=== PATIENT | female | born 1970 | race Caucasian/White ===

== ENCOUNTER 2017-01-01 04:33 | Observation (INO) | payer BC ==
[~2017-01-01] VITALS: Ht 160 cm; Wt 100.2 kg
[~2017-01-01 04:33] MED LIST: AMOX/K CLAV875 M1 PO; CIPRO500 MG OR; FLAGYL500 MG OR; NO; NO HOME MEDS; PERCOCET 5/325M1 TAB PO; SENNA S1 TAB OR; ZOFRAN ODT4 MG PO; ZPAK PO
--- NOTE | 2017-01-01 04:35 | NUR ---
PATIENT BROUGHT IMMEDIATELY BACK TO TREATMENT AREA. UNDRESSED INTO A GOWN. TRIAGE COMPLETED AT BEDSIDE.AWAITING MD POSEY.
[2017-01-01 05:24] LABS: ALBUMIN 5.1 g/dL (3.2-5.0); ALKALINE PHOSPHATASE 88 u/l (38-126); AMYLASE 68 u/l (30-110); ANION GAP 18 (6-22 (CALC)); BILIRUBIN, TOTAL 0.6 mg/dL (0.0-1.4); BUN 18 mg/dL (7-17); BUN/CREATININE RATIO 25 (12-20 (CALC)); CALCIUM 10.2 mg/dL (8.4-10.2); CARBON DIOXIDE 27 mmol/l (22-30); CHLORIDE 103 mmol/l (95-108); CREATININE 0.7 mg/dL (0.5-1.0); GFR > 60 ML/MIN (>=60 (CALC)); GFR FOR AFR.AMER. > 60 ML/MIN (>=60 (CALC)); GLUCOSE 137 mg/dL (65-105); LIPASE 111 u/l (23-300); POTASSIUM 4.2 mmol/l (3.5-5.1); SGOT/AST 33 u/l (14-36); SGPT/ALT 38 u/l (9-52); SODIUM 144 mmol/l (137-146); TOTAL PROTEIN 8.7 g/dL (6.3-8.2)
[2017-01-01 05:31] LABS: HEMATOCRIT 47.3 % (37.0-47.0); HEMOGLOBIN 16.1 g/dl (12.0-16.0); IMMATURE GRANULOCYTES 1.2 % (0.0-1.0); MEAN CELL VOLUME 85.2 fL CALC (80.0-100.0); NEUT# 12.09 thou/uL (2.00-7.15); RED BLOOD COUNT 5.55 mill/uL (4.20-5.60); RED CELL DISTRI WIDTH 12.5 % (11.5-15.5)
--- NOTE | 2017-01-01 05:35 | NUR ---
BUN AND CREAT ON CHART, WAITING ON CT.
--- NOTE | 2017-01-01 06:15 | NUR ---
POSITIVE FOR H.PYLORI WAITING ON CT RESULTS.
--- NOTE | 2017-01-01 06:48 | NUR ---
REPORT GIVEN TO ANASTACIO BRUNO.
--- NOTE | 2017-01-01 06:53 | NUR ---
PT RESTING ON STRETCHER. RESP EVEN AND UNLABORED. SKIN WARM AND DRY. PT STATES "I FEEL TERRIBLE". PT STATES NAUSEA IS GONE. PT STATES DOES NOT WANT ANYTHING FOR PAIN. VSS. CALL LIGHT WITHIN REACH. NS INFUSING. IV SITE HEALTHY. PT AWAITING CT RESULTS. PT STATES UNABLE TO PROVIDE URINE SPECIMEN.
--- NOTE | 2017-01-01 07:39 | NUR ---
PT RESTING ON STRETCHER. RESP EVEN AND UNLABORED. SKIN WARM AND DRY. PT A&O X3. VSS. PT STATES HAD "LARGE BOWEL MOVEMENT", SOFT, BROWN. NOTIFIED. PT UNABLE TO PROVIDE U/A. CALL LIGHT WITHIN REACH. PT STATES DISCOMFORT OF 5 ON 1/10 SCALE. PT STATES DOES NOT WANT ANY PAIN MEDICATION. PT C/O "SLIGHT NAUSEA, NOT BAD". PT STATES NO NEEDS AT THIS TIME. PT AWAITING ADMISSION.
--- NOTE | 2017-01-01 08:27 | NUR ---
PT RESTING ON STRETCHER. PT STATES "I'M IN A COMFORTABLE POSITION". FAMILY AT BEDSIDE. PT IN STABLE CONDITION. PT STATES NO NEEDS AT THIS TIME. CALL LIGHT WITHIN REACH. PT AWAITING ADMISSION.
--- NOTE | 2017-01-01 09:07 | NUR ---
PT RESTING COMFORTABLY ON STRETCHER. FAMILY AT BEDSIDE. PT AWAITING ADMISSION. CALL LIGHT WITHIN REACH.
--- NOTE | 2017-01-01 09:39 | NUR ---
PT RESTING COMFORTABLY ON STRETCHER. FAMILY AT BEDSIDE. PT STATES NO NEEDS AT THIS TIME. CALL LIGHT WITHIN REACH. PT AWAITING MS NURSE FOR ADMISSION.
--- NOTE | 2017-01-01 10:40 | NUR ---
REPORT GIVEN TO AVA CHAVES
--- NOTE | 2017-01-01 10:45 | NUR ---
MD AT BEDSIDE SPEAKING WITH PT
--- NOTE | 2017-01-01 10:48 | NUR ---
Admission Note Report Given to: AVA CHAVES Transported by: Wheelchair Stretcher Transported with: Nurse X Transporter X Patent IV O2 Film Reproducer PT IN STABLE CONDITION. PT DENIES PAIN AND NAUSEA. ALL BELONGINGS WITH PT.
--- NOTE | 2017-01-01 10:50 | NUR ---
REPORT RECIEVED FROM JOÃO RN; PT ARRIVED TO FLOOR AT THIS TIME AMBULATORY WITH STEADY GAIT; PT AMB TO SCALE AND BED; PT ORIENTED TO ROOM AND CALL LIGHT SYSTEM; VSS; ASSESSMENT COMPLETED; PT C/O TENDERNESS TO UPPER ABD FROM VOMITTING EARLY THIS AM; #20 TO RAC; FLUSHED W/O RESISTANCE; PT GIVEN WATER AND ENCOURAGED TO HAVE SLOW INTAKE; PT VERBALIZES UNDERSTANDING; CALL LIGHT WITHIN REACH; WILL CONTINUE TO MONITOR
[2017-01-01 11:05] VITALS: BP 112/74
[2017-01-01 11:37] LABS: URINE BILIRUBIN - DIPSTICK NEGATIVE (NEGATIVE); URINE BLOOD DIPSTICK NEGATIVE (NEGATIVE); URINE CLARITY CLEAR; URINE COLOR YELLOW; URINE GLUCOSE - DIPSTICK NEGATIVE (NEGATIVE); URINE KETONE NEGATIVE (NEGATIVE); URINE LEUK ESTERASE NEGATIVE (NEGATIVE); URINE NITRITE - DIPSTICK NEGATIVE (Negative); URINE PROTEIN - DIPSTICK NEGATIVE (NEG-TRACE); URINE UROBILINOGEN - DIPSTICK 0.2 E.U./dL (0.2)
--- NOTE | 2017-01-01 13:15 | NUR ---
PT C/O HEADACHE RATING 7 OUT OF 10; MEDICATED WITH TYLENOL PER PRN ORDERS; PT DENIES ANY OTHER NEEDS AT THIS TIME; CALL LIGHT WITHIN REACH; WILL CONTINUE TO MONITOR
[2017-01-01 14:47] VITALS: BP 101/65
--- NOTE | 2017-01-01 16:30 | NUR ---
PT C/O HEAD ACHE RATING 8 OUT OF 10; MEDICATED WITH ULTRAM PER PRN ORDERS; IVF INFUSING TO #20 TO RAC; SITE APPEARS HEALTHY AT THIS TIME; CALL LIGHT WIHTIN REACH; WILL CONTINUE TO MONITOR
[2017-01-01 19:26] VITALS: BP 90/60
--- NOTE | 2017-01-01 19:30 | NUR ---
PT IN BED WATCHING TV, AT BED SIDE. A/O, RESPIRATIONS EVEN AND UNLABORED. C/O EPIGASTRIC DISCOMFORT 09/16, BS ACTIVE. IV FLUIDS INFUSING TO TO RAC AT 100CC/HR. ADMITS TO TOLERATING SOFT DIET FOR DINNER AND IS READY TO GO HOME. DENIES NAUSEA, ENCOURAGED TO USE CALL LIGHT FOR ASSISTANCE, WILL CONTINUE TO MONITOR.
[2017-01-01] MEDS ORDERED: ZOFRAN ODT4 MG PO (20:23)
[2017-01-01] MEDS ORDERED: DICYCLOMINE20 MG PO (20:23)
--- NOTE | 2017-01-01 20:45 | NUR ---
DC ORDER TO HOME RECEIVED FROM DR. VILLALOBOS. IV FLUIDS STOPPED, HEPLOCK TO TO RAC DC'D WITH CATH TIP INTACT.
--- NOTE | 2017-01-01 21:10 | NUR ---
Discharge instructions given. Patient verbalizes understanding of same. Discharged in stable condition via Ambulatory to Home with spouse. All belongings sent with pt.
== END 2017-01-01 21:00 | disposition home or self-care (01) | DRG 392 ==
LOC: ENPENDDIS → ED 04:33 → ED-I 08:39 → ED 08:50 → MS2 08:51
PROVIDERS: Emergency Medicine; ADMIT Internal Medicine; ATTEND Internal Medicine
DX: R11.2 Nausea with vomiting, unspecified (principal); E86.0 Dehydration; R10.33 Periumbilical pain; R10.13 Epigastric pain; K59.00 Constipation, unspecified; N81.6 Rectocele; Z90.710 Acquired absence of both cervix and uterus
CPT/HCPCS: G0378; S0164

== ENCOUNTER 2017-02-01 05:58 | Day surgery (SDC) | payer BC ==
[~2017-02-01] VITALS: Ht 160 cm; Wt 98.9 kg
[~2017-02-01 05:58] MED LIST changes: +DICYCLOMINE20 MG PO
[2017-02-01 08:03] VITALS: BP 102/56
== END 2017-02-01 09:50 | disposition home or self-care (01) | DRG 392 ==
LOC: ENDO 05:58
PROVIDERS: ATTEND Surgery
PROC: 0DJD8ZZ Inspection of Lower Intestinal Tract, Via Natural or Artificial Opening Endoscopic (ICD-10-PCS; principal; 2017-02-01)
DX: K57.30 Diverticulosis of large intestine without perforation or abscess without bleeding (principal); K64.8 Other hemorrhoids; K59.00 Constipation, unspecified; R10.32 Left lower quadrant pain; N81.6 Rectocele; N81.10 Cystocele, unspecified; Z87.19 Personal history of other diseases of the digestive system

== ENCOUNTER → 2018-09-28 | Outpatient (REF) ==
[2018-09-28 09:55] LABS: CHOLESTEROL HDL RATIO 4.1 (<4.4 (CALC))
== END | disposition home or self-care (01) | DRG 951 ==
LOC: LAB 08:40
PROVIDERS: ATTEND Family Medicine
DX: Z02.6 Encounter for examination for insurance purposes (principal)

== ENCOUNTER 2021-03-12 08:34 | Inpatient (IN) | payer OTHER ==
[~2021-03-12] VITALS: Ht 160 cm; Wt 104.0 kg
[2021-03-12] VITALS (8 sets, daily range): BP systolic 79–125; BP diastolic 45–69
[2021-03-12 09:27] LABS: GFR > 60 ML/MIN (>=60 (CALC)); GFR FOR AFR.AMER. > 60 ML/MIN (>=60 (CALC))
[2021-03-12 09:28] LABS: HEMATOCRIT 43.1 % (37.0-47.0); HEMOGLOBIN 14.1 g/dl (12.0-16.0); IMMATURE GRANULOCYTES 0.7 % (0.0-5.0); MEAN CELL VOLUME 87.1 fL CALC (80.0-100.0); MEAN CORPUSCULAR HGB 28.5 pG CALC (26.0-32.0); MEAN CORPUSCULAR HGB CONC 32.7 g/dL CAL (32.0-36.0); NEUT# 11.61 thou/uL (2.00-7.15); RED BLOOD COUNT 4.95 mill/uL (4.20-5.60); RED CELL DISTRI WIDTH 12.4 % (11.5-15.5)
[2021-03-12 09:42] LABS: ALBUMIN 4.2 g/dL (3.2-5.0); ALKALINE PHOSPHATASE 82 u/l (38-126); ANION GAP 14 (6-22 (CALC)); BUN 16 mg/dL (7-17); BUN/CREATININE RATIO 31 (12-20 (CALC)); CARBON DIOXIDE 26 mmol/l (22-30); CHLORIDE 100 mmol/l (95-108); CREATININE 0.5 mg/dL (0.5-1.0); GFR > 60 ML/MIN (>=60 (CALC)); GFR FOR AFR.AMER. > 60 ML/MIN (>=60 (CALC)); LIPASE 332 u/l (23-300); MAGNESIUM 2.3 mg/dL (1.6-2.3); POTASSIUM 4.1 mmol/l (3.5-5.1); SODIUM 136 mmol/l (137-146); TOTAL PROTEIN 7.8 g/dL (6.3-8.2)
[2021-03-12 09:47] LABS: BILIRUBIN, TOTAL 0.8 mg/dL (0.0-1.4); SGOT/AST 53 u/l (14-36)
[2021-03-12 10:03] LABS: C-REACTIVE PROTEIN 3.3 mg/dL (0-0.9)
[2021-03-12 10:27] LABS: PROTHROMBIN TIME 10.1 SECONDS (9.0-12.5)
[2021-03-12 13:07] LABS: URINE BILIRUBIN - DIPSTICK NEGATIVE (NEGATIVE); URINE BLOOD DIPSTICK NEGATIVE (NEGATIVE); URINE COLOR YELLOW; URINE GLUCOSE - DIPSTICK NEGATIVE (NEGATIVE); URINE KETONE NEGATIVE (NEGATIVE); URINE LEUK ESTERASE NEGATIVE (NEGATIVE); URINE PROTEIN - DIPSTICK NEGATIVE (NEG-TRACE); URINE SPECIFIC GRAVITY <=1.005; URINE UROBILINOGEN - DIPSTICK 0.2 E.U./dL (0.2)
[2021-03-12 13:15] LABS: URINE NITRITE - DIPSTICK NEGATIVE (Negative)
[2021-03-13] VITALS (23 sets, daily range): BP systolic 96–133; BP diastolic 54–86
[2021-03-13 05:43] LABS: HEMATOCRIT 39.9 % (37.0-47.0); HEMOGLOBIN 13.2 g/dl (12.0-16.0); IMMATURE GRANULOCYTES 0.9 % (0.0-5.0); MEAN CELL VOLUME 87.1 fL CALC (80.0-100.0); MEAN CORPUSCULAR HGB 28.8 pG CALC (26.0-32.0); MEAN CORPUSCULAR HGB CONC 33.1 g/dL CAL (32.0-36.0); NEUT# 6.27 thou/uL (2.00-7.15); RED BLOOD COUNT 4.58 mill/uL (4.20-5.60)
[2021-03-13 06:35] LABS: ALBUMIN 3.5 g/dL (3.2-5.0); ALKALINE PHOSPHATASE 65 u/l (38-126); ANION GAP 14 (6-22 (CALC)); BILIRUBIN, TOTAL 0.7 mg/dL (0.0-1.4); BUN 17 mg/dL (7-17); BUN/CREATININE RATIO 34 (12-20 (CALC)); C-REACTIVE PROTEIN 5.1 mg/dL (0-0.9); CARBON DIOXIDE 25 mmol/l (22-30); CHLORIDE 100 mmol/l (95-108); CREATININE 0.5 mg/dL (0.5-1.0); GFR > 60 ML/MIN (>=60 (CALC)); GFR FOR AFR.AMER. > 60 ML/MIN (>=60 (CALC)); POTASSIUM 4.4 mmol/l (3.5-5.1); SGOT/AST 43 u/l (14-36); SODIUM 135 mmol/l (137-146); TOTAL PROTEIN 6.4 g/dL (6.3-8.2)
[2021-03-14] VITALS (21 sets, daily range): BP systolic 93–130; BP diastolic 52–75
[2021-03-14 05:19] LABS: HEMATOCRIT 40.1 % (37.0-47.0); HEMOGLOBIN 13.5 g/dl (12.0-16.0); MEAN CELL VOLUME 86.4 fL CALC (80.0-100.0); MEAN CORPUSCULAR HGB 29.1 pG CALC (26.0-32.0); MEAN CORPUSCULAR HGB CONC 33.7 g/dL CAL (32.0-36.0); RED BLOOD COUNT 4.64 mill/uL (4.20-5.60); RED CELL DISTRI WIDTH 11.8 % (11.5-15.5)
[2021-03-14 05:37] LABS: ANION GAP 11 (6-22 (CALC)); BUN 19 mg/dL (7-17); BUN/CREATININE RATIO 36 (12-20 (CALC)); CARBON DIOXIDE 27 mmol/l (22-30); CHLORIDE 100 mmol/l (95-108); CREATININE 0.5 mg/dL (0.5-1.0); GFR > 60 ML/MIN (>=60 (CALC)); GFR FOR AFR.AMER. > 60 ML/MIN (>=60 (CALC)); POTASSIUM 4.6 mmol/l (3.5-5.1); SODIUM 134 mmol/l (137-146)
[2021-03-15] VITALS (20 sets, daily range): BP systolic 89–123; BP diastolic 54–75
[2021-03-15 05:48] LABS: HEMATOCRIT 40.2 % (37.0-47.0); HEMOGLOBIN 13.5 g/dl (12.0-16.0); IMMATURE GRANULOCYTES 1.1 % (0.0-5.0); MEAN CELL VOLUME 85.9 fL CALC (80.0-100.0); MEAN CORPUSCULAR HGB 28.8 pG CALC (26.0-32.0); MEAN CORPUSCULAR HGB CONC 33.6 g/dL CAL (32.0-36.0); NEUT# 7.68 thou/uL (2.00-7.15); RED BLOOD COUNT 4.68 mill/uL (4.20-5.60); RED CELL DISTRI WIDTH 11.7 % (11.5-15.5)
[2021-03-15 06:08] LABS: ALBUMIN 3.4 g/dL (3.2-5.0); ALKALINE PHOSPHATASE 55 u/l (38-126); ANION GAP 11 (6-22 (CALC)); BILIRUBIN, TOTAL 0.5 mg/dL (0.0-1.4); BUN 16 mg/dL (7-17); BUN/CREATININE RATIO 33 (12-20 (CALC)); C-REACTIVE PROTEIN 3.4 mg/dL (0-0.9); CARBON DIOXIDE 27 mmol/l (22-30); CHLORIDE 101 mmol/l (95-108); CREATININE 0.5 mg/dL (0.5-1.0); GFR > 60 ML/MIN (>=60 (CALC)); GFR FOR AFR.AMER. > 60 ML/MIN (>=60 (CALC)); POTASSIUM 4.4 mmol/l (3.5-5.1); SGOT/AST 28 u/l (14-36); SODIUM 134 mmol/l (137-146); TOTAL PROTEIN 6.3 g/dL (6.3-8.2)
[2021-03-16] VITALS (8 sets, daily range): BP systolic 102–172; BP diastolic 50–86
[2021-03-16 06:03] LABS: ANION GAP 13 (6-22 (CALC)); BUN 22 mg/dL (7-17); BUN/CREATININE RATIO 46 (12-20 (CALC)); CARBON DIOXIDE 26 mmol/l (22-30); CHLORIDE 100 mmol/l (95-108); CREATININE 0.5 mg/dL (0.5-1.0); GFR > 60 ML/MIN (>=60 (CALC)); GFR FOR AFR.AMER. > 60 ML/MIN (>=60 (CALC)); POTASSIUM 4.5 mmol/l (3.5-5.1); SODIUM 134 mmol/l (137-146)
[2021-03-16 06:12] LABS: HEMATOCRIT 44.8 % (37.0-47.0); HEMOGLOBIN 14.3 g/dl (12.0-16.0); MEAN CELL VOLUME 90.1 fL CALC (80.0-100.0); MEAN CORPUSCULAR HGB 28.8 pG CALC (26.0-32.0); MEAN CORPUSCULAR HGB CONC 31.9 g/dL CAL (32.0-36.0); RED BLOOD COUNT 4.97 mill/uL (4.20-5.60)
[2021-03-16] MEDS ORDERED: LEVOFLOXACIN250 M1 PO (12:40)
[2021-03-16] MEDS ORDERED: DECADRON6 MG PO (12:41)
[2021-03-16] MEDS ORDERED: ASPIRIN 81 LOW81 MG PO (12:42)
== END 2021-03-16 13:40 | disposition home or self-care (01) | DRG 177 ==
LOC: ED 08:34 → ED-I 11:03 → ED 12:04 → ICU 12:05
PROVIDERS: Family Medicine; ADMIT Hospitalist; ATTEND Hospitalist
PROC: XW033E5 Introduction of Remdesivir Anti-infective into Peripheral Vein, Percutaneous Approach, New Technology Group 5 (ICD-10-PCS; principal; 2021-03-13)
DX: U07.1 COVID-19 (principal); J12.82 Pneumonia due to coronavirus disease 2019; J96.01 Acute respiratory failure with hypoxia; Z68.41 Body mass index [BMI] 40.0-44.9, adult; E66.9 Obesity, unspecified; K57.90 Diverticulosis of intestine, part unspecified, without perforation or abscess without bleeding
CPT/HCPCS: J1650; Q9967